=== PATIENT | male | born 1965 | race Caucasian/White ===

== ENCOUNTER 2019-08-16 15:04 | Inpatient (IN) | payer OTHER ==
[~2019-08-16] VITALS: Ht 182.9 cm; Wt 61.4 kg
[2019-08-16] MEDS ORDERED: CEFTRIAXONE PMX 1GM/50ML 50 ML IV ONE (15:30)
[2019-08-16] MEDS ORDERED: ACETAMINOPHEN 325 MG TABLET PO ONE (15:30)
[2019-08-16] MEDS ORDERED: DOXYCYCLINE 100 MG in DEXTROSE 5% 250 ML IV ONE (15:30)
[2019-08-16] MEDS ORDERED: SODIUM CHLORIDE 0.9%, 500ML IVBOLUS ONE (15:30)
[2019-08-16] MEDS ORDERED: SODIUM CHLORIDE 0.9% 1,000ML IVBOLUS ONE (15:30)
[2019-08-16] MEDS ORDERED: ACETAMINOPHEN 500 MG TABLET ONE (15:32)
[2019-08-16 15:40] LABS: RAPID INFLUENZA A Negative (Negative); RAPID INFLUENZA B Negative (Negative)
[2019-08-16] MEDS ORDERED: CEFTRIAXONE PMX 1GM/50ML 50 ML ONE (15:48)
[2019-08-16 15:49] LABS: BASOPHILS # (AUTO) 0.02 x10^3/uL (0-0.1); BASOPHILS % (AUTO) 0 % (0-1); EOSINOPHILS # (AUTO) 0.01 x10^3/uL (0-0.4); EOSINOPHILS % (AUTO) 0 % (1-7); LYMPHOCYTES # (AUTO) 0.29 x10^3/uL (1-3.4); LYMPHOCYTES % (AUTO) 5 % (22-44); MD NO; MEAN CORPUSCULAR HEMOGLOBIN 37.4 pg (27.5-34.5); MEAN CORPUSCULAR HGB CONC 34.1 g/dL (33.2-36.2); MEAN CORPUSCULAR VOLUME 109.5 fL (81-97); MEAN PLATELET VOLUME 7.7 fL (7.4-10.4); MONOCYTES % (AUTO) 3 % (2-9); NEUTROPHILS # (AUTO) 5.55 x10^3/uL (1.8-6.8); NEUTROPHILS % (AUTO) 91 % (42-75); PLATELET COUNT 105 x10^3/uL (130-400); RED BLOOD COUNT 3.54 x10^6/uL (4.38-5.82); RED CELL DISTRIBUTION WIDTH 14.3 % (9.4-14.8)
[2019-08-16] MEDS ORDERED: LORazepam 2 MG/ML, 1ML IVPush ONE (16:00)
[2019-08-16] MEDS ORDERED: PLEASE ENTER ALLERGIES MC SCH (16:00)
--- NOTE | 2019-08-16 16:00 | NUR ---
BIB [facility], PT FROM [facility] WITH ETOH DETOX, PT ALSO WITH PRODUCTIVE COUGH AND FEVER 102.2 [employer], EMS ADMINISTERED 500MG APAP, NS 1 L, ZOFRAN. PT NOW WITH TEMP OF 100.9. PT MEETING SEPSIS CRITERIA. PT MEDICATED PER SEP. PT TO CARD MONITOR, BP AND CONT PULSE OX. SEIZURE PRECAUTIONS ARE IN PLACE D/T HX OF SEIZURES WITH DETOX
[2019-08-16 16:01] LABS: ALANINE AMINOTRANSFERASE 85 U/L (12-78); ANION GAP 5 mmol/L (5-15); CALCIUM 8.1 mg/dL (8.5-10.1); CHLORIDE 105 mmol/L (98-107); CREATININE 0.62 mg/dL (0.7-1.3)
[2019-08-16 16:03] LABS: ALKALINE PHOSPHATASE 113 U/L (45-117); BILIRUBIN,TOTAL 1.6 mg/dL (0.2-1.0); TOTAL PROTEIN 5.8 g/dL (6.4-8.2)
[2019-08-16] MEDS ORDERED: ACETAMINOPHEN 325 MG TABLET PO PRN (16:30)
[2019-08-16] MEDS ORDERED: LORazepam 2 MG/ML, 1ML IV PRN ×3 (16:30)
[2019-08-16] MEDS ORDERED: LORazepam 1MG TABLET PO PRN ×3 (16:30)
[2019-08-16] MEDS ORDERED: POTASSIUM CHLORIDE 20 MEQ TAB.ER.PRT PO ONE (16:30)
[2019-08-16 16:44] LABS: INTERNATIONAL NORMALIZED RATIO 0.99 (0.93-1.1); PROTHROMBIN TIME 10.5 Seconds (9.6-11.5)
[2019-08-16 16:50] LABS: MICROSCOPIC NOT IND
--- NOTE | 2019-08-16 17:04 | NUR ---
PT MEDICATED WITH BOLUS AND ABX PER MD ORDER, ADMITTING MD IN TO EVAL PT. PT REMAINS DROWSY AT THIS TIME, WILL HOLD ATIVAN AT THIS TIME. NO EVIDENCE OF DETOX NOTED. VSS, NAD NOTED AT THIS TIME
[2019-08-16 17:09] LABS: CULTURE INDICATED? NO
[2019-08-16 17:42] LABS: AMPHETAMINE SCREEN, URINE Negative (Negative); BARBITURATE SCREEN, URINE Negative (Negative); BENZODIAZEPINE SCREEN, URINE Negative (Negative); CANNABINOID SCREEN, URINE Negative (Negative); COCAINE SCREEN, URINE Negative (Negative); METHADONE SCREEN, URINE Negative (Negative); OPIATE SCREEN, URINE Negative (Negative)
--- NOTE | 2019-08-16 17:54 | NUR ---
REPORT TO RECEIVING RN
--- NOTE | 2019-08-16 19:04 | NUR ---
PT WITH ASSISTED DECENT TO THE FLOOR, PT DID NOT HIT HEAD OR INJURE HIMSELF. PT NEURO INTACT (BASELINE) PT ASSISTED BACK TO BED, PT EVALED BY ERMD, NO FURTHER SCANS ORDERED. PT OK TO TRANSFER TO FLOOR. ATTEMPTED TO NOTIFY ERMD, NO CALL BACK, CALL TO THE FLOOR TO UPDATE RECIEVING RN OF EVENTS
[2019-08-16] MEDS ORDERED: THIAMINE 200 MG in DEXTROSE 5% 50 ML IVPB ONE (19:10)
[2019-08-16] MEDS ORDERED: MAGNESIUM SULFATE PMX 4GM/100M 100 ML IV ONE (19:12)
[2019-08-16 19:49] VITALS: BP 147/88
[2019-08-16] MEDS: PIPERACILLIN/TAZO/PMX 3.375GM 50 ML IV SCH (20:37)
[2019-08-16] MEDS: POTASSIUM CHLORIDE 20 MEQ, MAGNESIUM SULFATE 1 GM, FOLIC ACID 1 MG, THIAMINE 200 MG, MV... IV SCH (23:08)
[2019-08-17 00:11] VITALS: BP 139/87
[2019-08-17] MEDS ORDERED: POTASSIUM CHLORIDE 20 MEQ TAB.ER.PRT ONE (00:15)
[2019-08-17] MEDS ORDERED: NICOTINE 14MG/24 HR PATCH.TD24 TD SCH (00:30)
[2019-08-17] MEDS: PIPERACILLIN/TAZO/PMX 3.375GM 50 ML IV SCH ×4 (02:13→20:23)
[2019-08-17] MEDS: DOXYCYCLINE 100 MG in DEXTROSE 5% 250 ML IV SCH ×2 (04:22→16:17)
[2019-08-17] MEDS: MULTIVITAMINS/MINERALS TABLET PO SCH (08:10)
[2019-08-17 09:03] VITALS: BP 111/74
[2019-08-17] MEDS: LORazepam 0.5MG TABLET PO PRN (11:27)
[2019-08-17 12:22] VITALS: BP 126/78
[2019-08-17 19:10] VITALS: BP 104/68
[2019-08-17] MEDS: POTASSIUM CHLORIDE 20 MEQ, MAGNESIUM SULFATE 1 GM, FOLIC ACID 1 MG, THIAMINE 200 MG, MV... IV SCH (21:07)
[2019-08-18 00:45] VITALS: BP 123/83
[2019-08-18] MEDS: PIPERACILLIN/TAZO/PMX 3.375GM 50 ML IV SCH ×4 (01:15→20:10)
[2019-08-18] MEDS: NICOTINE 21 MG/24 HR PATCH.TD24 TD SCH (01:15)
[2019-08-18] MEDS: DOXYCYCLINE 100 MG in DEXTROSE 5% 250 ML IV SCH ×2 (04:53→16:58)
[2019-08-18 05:37] LABS: MEAN CORPUSCULAR HEMOGLOBIN 37.5 pg (27.5-34.5); MEAN CORPUSCULAR VOLUME 110.4 fL (81-97); RED BLOOD COUNT 3.49 x10^6/uL (4.38-5.82); RED CELL DISTRIBUTION WIDTH 13.9 % (9.4-14.8)
[2019-08-18 05:41] LABS: CHLORIDE 102 mmol/L (98-107)
[2019-08-18 05:53] LABS: ALANINE AMINOTRANSFERASE 72 U/L (12-78); ALBUMIN 2.9 g/dL (3.4-5.0); ALKALINE PHOSPHATASE 103 U/L (45-117); ANION GAP 6 mmol/L (5-15); BILIRUBIN,TOTAL 1.8 mg/dL (0.2-1.0); CALCIUM 8.5 mg/dL (8.5-10.1); CREATININE 0.66 mg/dL (0.7-1.3); TOTAL PROTEIN 6.5 g/dL (6.4-8.2)
[2019-08-18 05:59] LABS: BASOPHILS # (AUTO) 0.02 x10^3/uL (0-0.1); BASOPHILS % (AUTO) 0 % (0-1); EOSINOPHILS # (AUTO) 0.13 x10^3/uL (0-0.4); EOSINOPHILS % (AUTO) 2 % (1-7); LYMPHOCYTES # (AUTO) 1.31 x10^3/uL (1-3.4); LYMPHOCYTES % (AUTO) 16 % (22-44); MD SCAN; MEAN PLATELET VOLUME 8.8 fL (7.4-10.4); MONOCYTES % (AUTO) 5 % (2-9); NEUTROPHILS # (AUTO) 6.29 x10^3/uL (1.8-6.8); NEUTROPHILS % (AUTO) 77 % (42-75); PLATELET COUNT 80 x10^3/uL (130-400)
[2019-08-18 07:48] VITALS: BP 117/75
[2019-08-18] MEDS: MULTIVITAMINS/MINERALS TABLET PO SCH (08:23)
[2019-08-18] MEDS: THIAMINE 100 MG in DEXTROSE 5% 50 ML IVPB SCH (09:49)
[2019-08-18 13:57] VITALS: BP 126/82
[2019-08-18 20:35] VITALS: BP 135/75
[2019-08-18] MEDS: POTASSIUM CHLORIDE 20 MEQ, MAGNESIUM SULFATE 1 GM, FOLIC ACID 1 MG, THIAMINE 200 MG, MV... IV SCH (21:01)
[2019-08-19 00:07] VITALS: BP 144/85
[2019-08-19] MEDS: NICOTINE 21 MG/24 HR PATCH.TD24 TD SCH ×2 (02:05→09:00)
[2019-08-19] MEDS: PIPERACILLIN/TAZO/PMX 3.375GM 50 ML IV SCH ×4 (02:05→19:40)
[2019-08-19] MEDS: DOXYCYCLINE 100 MG in DEXTROSE 5% 250 ML IV SCH ×2 (04:37→17:57)
[2019-08-19 07:23] VITALS: BP 103/65
[2019-08-19] MEDS: THIAMINE 100 MG in DEXTROSE 5% 50 ML IVPB SCH (10:41)
[2019-08-19] MEDS: MULTIVITAMINS/MINERALS TABLET PO SCH (10:41)
[2019-08-19] MEDS ORDERED: MULT-484 PO (11:26)
[2019-08-19] MEDS ORDERED: CEFD300C37 PO (11:26)
[2019-08-19] MEDS ORDERED: DOXY100C15 PO (11:26)
[2019-08-19] MEDS ORDERED: MAGN400T26 PO (11:26)
[2019-08-19] MEDS ORDERED: MULT-115 PO (11:26)
[2019-08-19] MEDS ORDERED: NICO-487 TD (11:26)
[2019-08-19] MEDS ORDERED: THIA100T67 PO (11:26)
[2019-08-19] MEDS ORDERED: LACT1TAB13 PO (11:26)
[2019-08-19] MEDS ORDERED: FOLI-17 PO (11:26)
[2019-08-19 16:00] VITALS: BP 131/74
[2019-08-19] MEDS ORDERED: MAGNESIUM SULFATE PMX 2GM/50ML 50 ML ONE (16:31)
[2019-08-19] MEDS ORDERED: HALOPERIDOL 5 MG/ML IM ONE (16:42)
[2019-08-19] MEDS ORDERED: HALOPERIDOL 5 MG/ML ONE (16:43)
[2019-08-19 16:57] LABS: BASOPHILS # (AUTO) 0.02 x10^3/uL (0-0.1); BASOPHILS % (AUTO) 0 % (0-1); EOSINOPHILS % (AUTO) 1 % (1-7); LYMPHOCYTES # (AUTO) 1.84 x10^3/uL (1-3.4); LYMPHOCYTES % (AUTO) 22 % (22-44); MEAN CORPUSCULAR HEMOGLOBIN 37.4 pg (27.5-34.5); MEAN CORPUSCULAR HGB CONC 32.7 g/dL (33.2-36.2); MEAN CORPUSCULAR VOLUME 114.5 fL (81-97); MEAN PLATELET VOLUME 7.4 fL (7.4-10.4); MONOCYTES # (AUTO) 1.06 x10^3/uL (0.2-0.8); MONOCYTES % (AUTO) 13 % (2-9); NEUTROPHILS % (AUTO) 64 % (42-75); PLATELET COUNT 163 x10^3/uL (130-400); RED BLOOD COUNT 3.75 x10^6/uL (4.38-5.82); RED CELL DISTRIBUTION WIDTH 14.2 % (9.4-14.8)
[2019-08-19 16:59] LABS: ALBUMIN 3.6 g/dL (3.4-5.0); ANION GAP 15 mmol/L (5-15); CALCIUM 9.7 mg/dL (8.5-10.1); CHLORIDE 104 mmol/L (98-107)
[2019-08-19 17:03] LABS: ALANINE AMINOTRANSFERASE 62 U/L (12-78); ALKALINE PHOSPHATASE 116 U/L (45-117); BILIRUBIN,TOTAL 1.3 mg/dL (0.2-1.0); CREATININE 0.94 mg/dL (0.7-1.3); TOTAL PROTEIN 8.1 g/dL (6.4-8.2)
[2019-08-19 17:06] LABS: MD NO
[2019-08-19] MEDS ORDERED: LORazepam 2 MG/ML, 1ML IVPush PRN (17:30)
[2019-08-19 18:08] LABS: AMPHETAMINE SCREEN, URINE Negative (Negative); BARBITURATE SCREEN, URINE Negative (Negative); BENZODIAZEPINE SCREEN, URINE Positive (Negative); CANNABINOID SCREEN, URINE Negative (Negative); COCAINE SCREEN, URINE Negative (Negative); METHADONE SCREEN, URINE Negative (Negative); OPIATE SCREEN, URINE Negative (Negative)
[2019-08-19] MEDS: LORazepam 2 MG/ML, 1ML IV PRN ×3 (19:40→23:53)
[2019-08-19 20:22] VITALS: BP 152/87
[2019-08-19] MEDS: POTASSIUM CHLORIDE 20 MEQ, MAGNESIUM SULFATE 1 GM, FOLIC ACID 1 MG, THIAMINE 200 MG, MV... IV SCH (21:14)
[2019-08-20 00:54] VITALS: BP 147/76
[2019-08-20] MEDS: PIPERACILLIN/TAZO/PMX 3.375GM 50 ML IV SCH ×4 (02:01→20:11)
[2019-08-20] MEDS: LORazepam 2 MG/ML, 1ML IV PRN ×3 (03:50→10:37)
[2019-08-20] MEDS: DOXYCYCLINE 100 MG in DEXTROSE 5% 250 ML IV SCH ×2 (04:47→17:17)
[2019-08-20 05:36] LABS: ANION GAP 4 mmol/L (5-15); CALCIUM 8.7 mg/dL (8.5-10.1); CHLORIDE 105 mmol/L (98-107)
[2019-08-20 08:46] VITALS: BP 141/89
[2019-08-20] MEDS: MULTIVITAMINS/MINERALS TABLET PO SCH (09:35)
[2019-08-20] MEDS: THIAMINE 100 MG in DEXTROSE 5% 50 ML IVPB SCH (09:42)
[2019-08-20] MEDS: NICOTINE 21 MG/24 HR PATCH.TD24 TD SCH (09:43)
[2019-08-20 12:40] VITALS: BP 149/82
[2019-08-20] MEDS: LORazepam 0.5MG TABLET PO PRN (14:37)
[2019-08-20] MEDS: POTASSIUM CHLORIDE 20 MEQ TAB.ER.PRT PO SCH ×2 (17:17→17:33)
[2019-08-20 19:50] VITALS: BP 120/78
[2019-08-20] MEDS: POTASSIUM CHLORIDE 20 MEQ, MAGNESIUM SULFATE 1 GM, FOLIC ACID 1 MG, THIAMINE 200 MG, MV... IV SCH (21:20)
[2019-08-21 00:22] VITALS: BP 116/78
[2019-08-21] MEDS: PIPERACILLIN/TAZO/PMX 3.375GM 50 ML IV SCH ×4 (02:04→20:07)
[2019-08-21] MEDS: DOXYCYCLINE 100 MG in DEXTROSE 5% 250 ML IV SCH ×2 (05:10→17:00)
[2019-08-21 05:37] LABS: ANION GAP 4 mmol/L (5-15); CALCIUM 8.7 mg/dL (8.5-10.1); CHLORIDE 105 mmol/L (98-107); CREATININE 0.65 mg/dL (0.7-1.3)
[2019-08-21 06:42] VITALS: BP 134/87
[2019-08-21] MEDS: THIAMINE 100 MG in DEXTROSE 5% 50 ML IVPB SCH (09:23)
[2019-08-21] MEDS: NICOTINE 21 MG/24 HR PATCH.TD24 TD SCH (09:24)
[2019-08-21] MEDS: MULTIVITAMINS/MINERALS TABLET PO SCH (09:24)
[2019-08-21 13:23] VITALS: BP 120/67
[2019-08-21 20:11] VITALS: BP 125/72
[2019-08-21] MEDS: POTASSIUM CHLORIDE 20 MEQ, MAGNESIUM SULFATE 1 GM, FOLIC ACID 1 MG, THIAMINE 200 MG, MV... IV SCH (20:59)
[2019-08-22] MEDS: PIPERACILLIN/TAZO/PMX 3.375GM 50 ML IV SCH ×2 (02:13→09:36)
[2019-08-22 02:17] VITALS: BP 127/79
[2019-08-22] MEDS: DOXYCYCLINE 100 MG in DEXTROSE 5% 250 ML IV SCH (04:50)
[2019-08-22 09:25] VITALS: BP 117/77
[2019-08-22] MEDS: THIAMINE 100 MG in DEXTROSE 5% 50 ML IVPB SCH (09:36)
[2019-08-22] MEDS: NICOTINE 21 MG/24 HR PATCH.TD24 TD SCH (09:37)
[2019-08-22] MEDS: MULTIVITAMINS/MINERALS TABLET PO SCH (09:37)
[2019-08-22] MEDS ORDERED: DOXY100C15 PO (12:08)
[2019-08-22] MEDS ORDERED: FOLI-17 PO (12:08)
[2019-08-22] MEDS ORDERED: CEFD300C37 PO (12:08)
[2019-08-22] MEDS ORDERED: LACT1TAB13 PO (12:08)
[2019-08-22] MEDS ORDERED: THIA100T67 PO (12:08)
[2019-08-22] MEDS ORDERED: NICO-487 TD (12:08)
[2019-08-22] MEDS ORDERED: MAGN400T26 PO (12:08)
[2019-08-22] MEDS ORDERED: MULT1TAB60 PO (12:08)
== END 2019-08-22 13:15 | disposition home or self-care (01) | DRG 871 ==
LOC: ED 15:54 → EDIP 15:55 → 4EST 19:07 → 4WST 22:00 → 4EST 08-20 07:53 → 4WST 08-20 19:40 → DCLOUNGE 08-22 13:02
PROVIDERS: ADMIT Internal Medicine; ATTEND Internal Medicine
DX: A41.9 Sepsis, unspecified organism (principal); J69.0 Pneumonitis due to inhalation of food and vomit; J96.00 Acute respiratory failure, unspecified whether with hypoxia or hypercapnia; F10.239 Alcohol dependence with withdrawal, unspecified; D69.6 Thrombocytopenia, unspecified; E83.42 Hypomagnesemia; E87.6 Hypokalemia; Y90.9 Presence of alcohol in blood, level not specified; F17.200 Nicotine dependence, unspecified, uncomplicated; K70.9 Alcoholic liver disease, unspecified; K76.0 Fatty (change of) liver, not elsewhere classified; R56.9 Unspecified convulsions; R65.20 Severe sepsis without septic shock; Z91.81 History of falling
CPT/HCPCS: 36415; 70450; 71045; 76700; 80048; 80053; 80307; 81003; 82962; 83605; 83735; 84100; 85025; 85610; 87040; 87400; 93005; 95819; 96361; 96374; 96375; 99291; G0378; J0696; J2543; J3411; J3475; J3480; J7060; J7070; J1630; J2060; J7030; J7040

== ENCOUNTER 2019-09-28 13:19 | Emergency (ER) | payer MEDICAID ==
[~2019-09-28] VITALS: Ht 182.9 cm; Wt 69.8 kg
[~2019-09-28 13:19] MED LIST: CEFD300C37 PO; DOXY100C15 PO; FOLI-17 PO; LACT1TAB13 PO; MAGN400T26 PO; MULT-115 PO; MULT-484 PO; MULT1TAB60 PO; NICO-487 TD; THIA100T67 PO
--- NOTE | 2019-09-28 14:35 | NUR ---
pt ambulated back to room, changed into gown, resting on gurney, NAD, even and unlabored respirations, call light within reach, pt denies additional needs at this time. WCTM.
--- NOTE | 2019-09-28 14:49 | NUR ---
pt reports noticing new "red bumps on his arm" that started this morning. RN noted raised venous areas that are hardened, pt denies any pain, NAD, denies additional needs, [facility] at bedside assessing and discussing plan of care with pt.
--- NOTE | 2019-09-28 15:38 | NUR ---
US at bedside, pt resting in gurney, eyes closed, NAD, even and unlabored respriations, call light within reach, WCTM.
--- NOTE | 2019-09-28 15:43 | NUR ---
pt given warm blanket for comfort, NAD, WCTM
[2019-09-28 16:47] VITALS: BP 110/68
== END 2019-09-28 16:49 | disposition home or self-care (01) ==
LOC: ED 16:30
DX: I80.8 Phlebitis and thrombophlebitis of other sites (principal); F17.200 Nicotine dependence, unspecified, uncomplicated
CPT/HCPCS: 99284

== ENCOUNTER 2019-12-07 17:12 | Emergency (ER) | payer MEDICAID ==
[~2019-12-07] VITALS: Ht 182.9 cm; Wt 76.0 kg
--- NOTE | 2019-12-07 19:01 | NUR ---
PT STATES "I'VE BEEN WAKING UP FOR A LONG TIME WITH A COUGH. IT USUALLY STOPS WHEN I GET UP BUT STARTS AROUND 3AM." DENIES FEVERS/CHILLS. DENIES SOB/SORE THROAT. PT PLACED ON MONITOR, VS STABLE. WILL CONTINUE TO MONITOR PT.
[2019-12-07 19:38] LABS: BASOPHILS # (AUTO) 0.04 x10^3/uL (0-0.1); BASOPHILS % (AUTO) 1 % (0-1); EOSINOPHILS # (AUTO) 0.38 x10^3/uL (0-0.4); EOSINOPHILS % (AUTO) 6 % (1-7); LYMPHOCYTES # (AUTO) 2.58 x10^3/uL (1-3.4); LYMPHOCYTES % (AUTO) 40 % (22-44); MD NO; MEAN CORPUSCULAR HEMOGLOBIN 33.2 pg (27.5-34.5); MEAN CORPUSCULAR VOLUME 100.4 fL (81-97); MEAN PLATELET VOLUME 7.8 fL (7.4-10.4); MONOCYTES # (AUTO) 0.68 x10^3/uL (0.2-0.8); MONOCYTES % (AUTO) 11 % (2-9); NEUTROPHILS # (AUTO) 2.83 x10^3/uL (1.8-6.8); NEUTROPHILS % (AUTO) 44 % (42-75); PLATELET COUNT 274 x10^3/uL (130-400); RED CELL DISTRIBUTION WIDTH 12.7 % (9.4-14.8)
[2019-12-07 19:39] LABS: ALBUMIN 3.4 g/dL (3.4-5.0); ANION GAP 5 mmol/L (5-15); CALCIUM 8.5 mg/dL (8.5-10.1); CHLORIDE 109 mmol/L (98-107); CREATININE 0.87 mg/dL (0.7-1.3)
[2019-12-07 19:43] LABS: TROPONIN I < 0.015 ng/mL (0.000-0.045)
[2019-12-07 20:14] VITALS: BP 127/64
== END 2019-12-07 20:16 | disposition home or self-care (01) ==
LOC: ED 20:00
DX: J44.9 Chronic obstructive pulmonary disease, unspecified (principal); R07.9 Chest pain, unspecified; R94.31 Abnormal electrocardiogram [ECG] [EKG]; F17.210 Nicotine dependence, cigarettes, uncomplicated
CPT/HCPCS: 36415; 71045; 80048; 82040; 83880; 84484; 85025; 93005; 99285